=== PATIENT | male | born 2000 | race Caucasian/White ===

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

== ENCOUNTER 2023-06-23 20:11 | Emergency (ER) | payer OTHER ==
[~2023-06-23] VITALS: Ht 177.8 cm; Wt 79.4 kg
[2023-06-23 20:20] VITALS: BP 142/90; PULSE 74; RESP 17; TEMP 97.8; O2SAT 98
[2023-06-23] MEDS ORDERED: ATA25 PO (21:21)
[2023-06-23] MEDS ORDERED: ONDA8TAB87 PO (21:21)
[2023-06-23 21:35] VITALS: BP 142/90; PULSE 74; RESP 17; TEMP 97.8; O2SAT 98
== END 2023-06-23 21:35 | disposition home or self-care (01) ==
LOC: MED 20:11
DX: F41.9 Anxiety disorder, unspecified (principal); R11.0 Nausea; K21.9 Gastro-esophageal reflux disease without esophagitis; Z79.899 Other long term (current) drug therapy
CPT/HCPCS: 99283